=== PATIENT | male | born 2000 | race American Indian/Alaskan Native ===

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

== ENCOUNTER → 2021-07-04 00:01 | Outpatient (BNVA) | payer OTHER, MEDICAID, SELFPAY | PROVIDERS: Visit Provider Psychiatry & Neurology Psychiatry | DX: Z79.899 Other long term (current) drug therapy (principal); Z03.89 Encounter for observation for other suspected diseases and conditions ruled out; F70 Mild intellectual disabilities; E66.01 Morbid (severe) obesity due to excess calories; I10 Essential (primary) hypertension; Z55.9 Problems related to education and literacy, unspecified | CPT/HCPCS: 80053; 80061; 83036; 84443 ==

== ENCOUNTER → 2021-11-15 09:45 | Outpatient (BNVA) | payer MEDICAID, SELFPAY | PROVIDERS: Visit Provider Family Medicine | DX: I10 Essential (primary) hypertension (principal) | CPT/HCPCS: 80053 ==

== ENCOUNTER → 2022-07-17 11:30 | Outpatient (BNVA) | payer OTHER, SELFPAY | PROVIDERS: Visit Provider Psychiatry & Neurology Psychiatry | DX: F90.9 Attention-deficit hyperactivity disorder, unspecified type (principal); Z55.9 Problems related to education and literacy, unspecified; F70 Mild intellectual disabilities; E66.01 Morbid (severe) obesity due to excess calories | CPT/HCPCS: 80061; 83036 ==

== ENCOUNTER 2022-09-07 01:00 | Outpatient (CLI) | payer MEDICAID, SELFPAY ==
[2022-07-25 14:06] VITALS: BP 162/103; BMI 60.9
== END 2022-09-07 23:00 | disposition home or self-care (01) ==
LOC: RAD 10-02 14:30
PROVIDERS: Visit Provider Family Medicine
DX: I10 Essential (primary) hypertension (principal)
CPT/HCPCS: 81000